=== PATIENT | male | born 1990 | race African-American/Black ===

== ENCOUNTER 2017-10-28 07:25 | Emergency (ER) | payer MEDICAID ==
[~2017-10-28] VITALS: Ht 175.3 cm; Wt 74.8 kg
[2017-10-28 07:31] VITALS: BP_SYST 120
[2017-10-28 07:52] VITALS: BP_SYST 120
== END 2017-10-28 07:52 | disposition home or self-care (01) ==
LOC: SED 07:25
DX: J02.0 Streptococcal pharyngitis (principal); F17.210 Nicotine dependence, cigarettes, uncomplicated; Z71.6 Tobacco abuse counseling
CPT/HCPCS: 99283